=== PATIENT | female | born 1985 | race Caucasian/White ===

== ENCOUNTER → 2016-11-27 | Outpatient (CLI) | payer BC ==
[~2016-11-27] MED LIST: TAMS0.4C38 PO
--- NOTE | 2016-11-27 10:12 | DIAGNOSTIC IMAGING REPORT ---
[facility] CLINICAL HISTORY: Nephrolithiasis. FINDINGS: 2 AP abdominal radiographs are compared to study dated 05/10/2016 and correlated with abdominal CT dated 03/28/2016. There is a nonobstructed abdominal bowel gas pattern. Small bilateral nonobstructing renal calculi are identified. These are likely similar to previous. The renal shadows are largely obscured by overlying colonic contents. No calcifications are seen projecting along the course of the ureters. The bony structures appear intact. The lung bases are clear as visualized. IMPRESSION: Suspect small bilateral nonobstructing renal calculi, likely unchanged from 05/10/2016. Electronically signed by: Ventura Ruiz M.D. 11/27/2016 10:11 AM Dictated Date/Time: 11/27/2016 10:09 AM
== END | disposition home or self-care (01) ==
LOC: C.RAD 09:41
PROVIDERS: ATTEND Urology
DX: N39.0 Urinary tract infection, site not specified (principal)

== ENCOUNTER → 2017-05-07 | Outpatient (CLI) | payer BC | END | disposition home or self-care (01) | LOC: C.LAB 10:01 | PROVIDERS: ATTEND Obstetrics & Gynecology | DX: O00.90 Unspecified ectopic pregnancy without intrauterine pregnancy (principal); Z32.01 Encounter for pregnancy test, result positive ==

== ENCOUNTER → 2017-05-09 | Outpatient (CLI) | payer BC | END | disposition home or self-care (01) | LOC: C.LAB 09:13 | PROVIDERS: ATTEND Obstetrics & Gynecology | DX: O00.90 Unspecified ectopic pregnancy without intrauterine pregnancy (principal); Z32.01 Encounter for pregnancy test, result positive ==

== ENCOUNTER → 2017-05-11 | Outpatient (CLI) | payer BC | END | disposition home or self-care (01) | LOC: C.LAB 09:22 | PROVIDERS: ATTEND Obstetrics & Gynecology | DX: Z32.01 Encounter for pregnancy test, result positive (principal); Z33.1 Pregnant state, incidental ==

== ENCOUNTER → 2017-05-13 | Outpatient (CLI) | payer BC | END | disposition home or self-care (01) | LOC: C.LAB 09:18 | PROVIDERS: ATTEND Obstetrics & Gynecology | DX: Z32.01 Encounter for pregnancy test, result positive (principal); Z33.1 Pregnant state, incidental ==

== ENCOUNTER → 2017-05-15 | Outpatient (CLI) | payer BC | END | disposition home or self-care (01) | LOC: C.LAB 09:21 | PROVIDERS: ATTEND Obstetrics & Gynecology | DX: Z32.01 Encounter for pregnancy test, result positive (principal); Z33.1 Pregnant state, incidental ==

== ENCOUNTER → 2017-05-17 | Outpatient (CLI) | payer BC ==
[2017-05-17 10:20] LABS: BASO % 0.4 %; BASO ABS # 0.03 K/uL (0-0.2); COMPLETE YES; EOS % 2.5 %; HEMATOCRIT 36.5 % (37-47); IG% 0.1 %; LYMPH % 29.6 %; LYMPH ABS # 2.17 K/uL (1.2-3.4); MEAN CELL VOLUME 84.5 fL (80-100); MEAN CORPUSCULAR HEMOGLOBIN 26.9 pg (25-34); MEAN CORPUSCULAR HGB CONC 31.8 g/dl (32-36); MEAN PLATELET VOLUME 10.2 fL (7.4-10.4); MONO % 7.9 %; NEUT % 59.5 %; PLATELET COUNT 244 K/uL (130-400); RED BLOOD COUNT 4.32 M/uL (4.2-5.4); WHITE BLOOD COUNT 7.33 K/uL (4.8-10.8)
== END | disposition home or self-care (01) ==
LOC: C.LAB 09:22
PROVIDERS: ATTEND Obstetrics & Gynecology
DX: Z33.1 Pregnant state, incidental (principal)

== ENCOUNTER 2017-05-18 15:06 | Emergency (ER) | payer BC ==
[~2017-05-18] VITALS: Ht 162.6 cm; Wt 108.2 kg
[2017-05-18 15:09] VITALS: TEMP 36.9; Ht 162.6 cm; Wt 108.2 kg
[2017-05-18] MEDS ORDERED: HYDROCODONE/ACETAMOPHEN 5/325MG TAB PO STA (17:35)
[2017-05-18 18:17] LABS: BASO % 0.3 %; BASO ABS # 0.03 K/uL (0-0.2); COMPLETE YES; EOS % 1.2 %; HEMATOCRIT 37.8 % (37-47); IG% 0.2 %; LYMPH % 23.3 %; LYMPH ABS # 2.25 K/uL (1.2-3.4); MEAN CELL VOLUME 84.2 fL (80-100); MEAN CORPUSCULAR HEMOGLOBIN 26.5 pg (25-34); MEAN CORPUSCULAR HGB CONC 31.5 g/dl (32-36); MEAN PLATELET VOLUME 10.5 fL (7.4-10.4); MONO % 5.3 %; NEUT % 69.7 %; PLATELET COUNT 247 K/uL (130-400); RED BLOOD COUNT 4.49 M/uL (4.2-5.4); WHITE BLOOD COUNT 9.64 K/uL (4.8-10.8)
--- NOTE | 2017-05-18 18:27 | EMERGENCY ROOM VISIT NOTE ---
History First contact with patient: 15:45 Chief Complaint: PELVIC PAIN Stated Complaint: LIGHTHEADED, CRAMPING,SWEAT DURING History of Present Illness The patient is a 32 year old female who presents to the Emergency Room with complaints of pelvic cramping and lightheadedness. The patient states she is approximately 5 weeks . The patient has an extensive history of ectopic pregnancies. She states she has had 4 ectopic pregnancies, one of which required surgery and one of which required injected methotrexate. She has had 9 pregnancies in total and has 3 living children. The patient has been following closely with [facility] due to her history and has been having her beta hCG tested every other day. She states she was seen in the office today and had an ultrasound showing inconclusive findings. She reports that when she returned home after the ultrasound, she had cramping in her lower abdomen radiating into the back. She became lightheaded and sweaty. She states her symptoms have been improving. She states this does not feel like prior ectopic pregnancies. She did not pass out. She rates her current discomfort a 3/10. She denies any urinary symptoms, chest pain, shortness of breath, nausea or vomiting. She denies any vaginal bleeding. Review of Systems A complete 10 point review of systems was reviewed with the patient with pertinent positives and negatives as per history of present illness. All else were negative. Past Medical/Surgical History Medical Problems: (1) Asthmatic bronchitis (2) Ectopic (3) Flank pain (4) Flank pain (5) Intrauterine (6) Miscarriage (7) Ulcer Surgical Problems: (1) H/O wisdom tooth extraction (2) Previous section Family History FH: diabetes mellitus Social History Smoking Status: Never Smoker Marital Status: Housing Status: lives with family Occupation Status: unemployed Current/Historical Medications No Active Prescriptions or Reported Meds Physical Exam Vital Signs Date Time Temp Pulse Resp B/P (MAP) Pulse Ox O2 Delivery O2 Flow Rate FiO2 05/18/17 20:19 77 16 114/67 98 Room Air 05/18/17 18:41 83 16 126/90 99 Room Air 05/18/17 17:25 72 17 114/67 100 Room Air 05/18/17 15:09 36.9 71 20 120/75 100 Room Air Physical Exam VITALS: Vitals are noted on the nurse's note and reviewed by myself. Vital signs stable. GENERAL: This is a 32-year-old female, in no acute distress, nondiaphoretic, well-developed well-nourished. HEENT: Normocephalic. PERRLA. EOMI. Mucous membranes moist. Neck is supple without nuchal rigidity. HEART: Regular rate and rhythm without murmurs gallops or rubs. LUNGS: Clear to auscultation bilaterally without wheezes, rales or rhonchi. ABDOMEN: Soft, mild tenderness across the lower abdomen. No guarding or rebound tenderness. No focal tenderness. NEURO: Patient was alert and oriented to person place and time. Medical Decision & Procedures Laboratory Results 05/18/17 18:05 Red Blood Count 4.49, Mean Corpuscular Volume 84.2, Mean Corpuscular Hemoglobin 26.5, Mean Corpuscular Hemoglobin Concent 31.5, Mean Platelet Volume 10.5, Neutrophils (%) (Auto) 69.7, Lymphocytes (%) (Auto) 23.3, Monocytes (%) (Auto) 5.3, Eosinophils (%) (Auto) 1.2, Basophils (%) (Auto) 0.3, Neutrophils # (Auto) 6.71, Lymphocytes # (Auto) 2.25, Monocytes # (Auto) 0.51, Eosinophils # (Auto) 0.12, Basophils # (Auto) 0.03 05/18/17 17:23 Test 05/18/17 17:23 05/18/17 18:05 05/18/17 18:40 Anion Gap 9.0 mmol/L (3-11) Est Creatinine Clear Calc Drug Dose 148.8 ml/min Estimated GFR () 134.9 Estimated GFR (Non- 116.4 BUN/Creatinine Ratio 19.6 (10-20) Calcium Level 9.0 mg/dl (8.5-10.1) Human Chorionic Gonadotropin, Quant 3132 mIU/mL White Blood Count 9.64 K/uL (4.8-10.8) Red Blood Count 4.49 M/uL (4.2-5.4) Hemoglobin 11.9 g/dL (12.0-16.0) Hematocrit 37.8 % (37-47) Mean Corpuscular Volume 84.2 fL (80-100) Mean Corpuscular Hemoglobin 26.5 pg (25-34) Mean Corpuscular Hemoglobin Concent 31.5 g/dl (32-36) Platelet Count 247 K/uL (130-400) Mean Platelet Volume 10.5 fL (7.4-10.4) Neutrophils (%) (Auto) 69.7 % Lymphocytes (%) (Auto) 23.3 % Monocytes (%) (Auto) 5.3 % Eosinophils (%) (Auto) 1.2 % Basophils (%) (Auto) 0.3 % Neutrophils # (Auto) 6.71 K/uL (1.4-6.5) Lymphocytes # (Auto) 2.25 K/uL (1.2-3.4) Monocytes # (Auto) 0.51 K/uL (0.11-0.59) Eosinophils # (Auto) 0.12 K/uL (0-0.5) Basophils # (Auto) 0.03 K/uL (0-0.2) RDW Standard Deviation 44.0 fL (36.4-46.3) RDW Coefficient of Variation 14.2 % (11.5-14.5) Immature Granulocyte % (Auto) 0.2 % Immature Granulocyte # (Auto) 0.02 K/uL (0.00-0.02) Urine Color YELLOW Urine Appearance CLEAR (CLEAR) Urine pH 6.0 (4.5-7.5) Urine Specific [place] 1.015 (1.000-1.030) Urine Protein NEG (NEG) Urine Glucose (UA) NEG (NEG) Urine Ketones 2+ (NEG) Urine Occult Blood TRACE (NEG) Urine Nitrite NEG (NEG) Urine Bilirubin NEG (NEG) Urine Urobilinogen NEG (NEG) Urine Leukocyte Esterase NEG (NEG) Urine WBC (Auto) 1-5 /hpf (0-5) Urine RBC (Auto) 0-4 /hpf (0-4) Urine Hyaline Casts (Auto) 1-5 /lpf (0-5) Urine Epithelial Cells (Auto) 20-30 /lpf (0-5) Urine Bacteria (Auto) 3+ (NEG) Medical Decision Differential diagnosis includes ectopic , ovarian cyst, ovarian torsion , placenta accreta, placenta previa, among others. The patient is a 32-year-old female who presents today complaining of abdominal cramping in the setting of . I was able to obtain the notes from the patient's office visit today. She saw Dr. Yan, who performed an ultrasound which showed a small cystic structure in the endometrial lining, possibly pseudocyst sac versus early IUP. Labs today revealed a beta hCG of 3132, which has improved from 2177 yesterday. Urinalysis shows a small amount of blood which I feel is likely secondary to having the transvaginal ultrasound performed today. At the time of my evaluation, the patient was in no acute distress and had no abdominal tenderness on exam. The case was discussed with the [facility] on-call, Dr. Gabriel, who felt that the patient could be discharged home to follow-up in the office on Sunday for ultrasound and repeat beta hCG. I was also contacted by Dr. Yan, who saw the patient in the office today and I discussed the treatment plan with her as well. All findings and treatment plan were discussed with the patient, who was instructed to return here immediately if she has worsening or concerning symptoms. Based on the patient's presentation and work up, I feel the patient is stable for outpatient treatment. The patient was educated to return to the emergency department for any worsening of their current condition or new/concerning symptoms. She will follow up with [facility] on Sunday. Medication Reconcilliation Current Medication List: was personally reviewed by me Blood Pressure Screening Patient's blood pressure: Normal blood pressure Impression Primary Impression: of unknown anatomic location Departure Information Dispostion Home / Self-Care Condition GOOD Prescriptions No Active Prescriptions or Reported Meds Referrals No Doctor, Assigned (PCP) Patient Instructions My [facility] Additional Instructions Follow-up with [facility] on Sunday for repeat ultrasound and repeat hormone level. Rest and drink plenty of fluids for the next few days. Return to the emergency department with any worsening abdominal pain, passing out, vaginal bleeding or other new/concerning symptoms.
[2017-05-18 19:05] LABS: URINE APPEARANCE CLEAR (CLEAR); URINE BILIRUBIN NEG (NEG); URINE COLOR YELLOW; URINE EPITHELIAL CELL AUTO 20-30 /lpf (0-5); URINE NITRITE NEG (NEG); URINE SPECIFIC GRAVITY 1.015 (1.000-1.030); UROBILINOGEN NEG (NEG); ZZUR CULT IF INDIC CLEAN CATCH YES
[2017-05-18 19:13] LABS: MANUAL MICROSCOPIC REQUIRED? NO; REVIEW REQ? YES
[2017-05-18 20:19] VITALS: BP 114/67; PULSE 77; O2SAT 98
[2017-05-18 20:22] LABS: BUN/CREATININE RATIO 19.6 (10-20); CREATININE 0.64 mg/dl (0.60-1.20); POTASSIUM 3.9 mmol/L (3.5-5.1)
== END 2017-05-18 20:20 | disposition home or self-care (01) ==
LOC: C.EDB 15:09
DX: O26.91 Pregnancy related conditions, unspecified, first trimester (principal); R10.2 Pelvic and perineal pain; J45.909 Unspecified asthma, uncomplicated; Z98.890 Other specified postprocedural states; Z83.3 Family history of diabetes mellitus

== ENCOUNTER → 2017-05-21 | Outpatient (CLI) | payer BC ==
[2017-05-21 12:50] LABS: ALKALINE PHOSPHATASE 66 U/L (45-117); ALT/SGPT 26 U/L (12-78); AST/SGOT 21 U/L (15-37); BLOOD UREA NITROGEN 12 mg/dl (7-18); CREATININE 0.63 mg/dl (0.60-1.20)
== END | disposition home or self-care (01) ==
LOC: C.LAB1850 11:40
PROVIDERS: ATTEND Obstetrics & Gynecology
DX: O09.00 Supervision of pregnancy with history of infertility, unspecified trimester (principal); Z3A.00 Weeks of gestation of pregnancy not specified

== ENCOUNTER → 2017-05-21 | Outpatient (CLI) | payer BC | END | disposition home or self-care (01) | LOC: C.LAB 08:48 | PROVIDERS: ATTEND Obstetrics & Gynecology | DX: Z33.1 Pregnant state, incidental (principal) ==

== ENCOUNTER → 2018-06-10 | Outpatient (CLI) | payer BC | END | disposition home or self-care (01) | LOC: C.LAB 10:43 | PROVIDERS: ATTEND Obstetrics & Gynecology | DX: Z32.01 Encounter for pregnancy test, result positive (principal) ==